=== PATIENT | female | born 2000 | race Caucasian/White ===

== ENCOUNTER 2022-09-18 06:15 | Day surgery (SDC) | payer OTHER ==
[~2022-09-18] VITALS: Ht 175.3 cm; Wt 138.8 kg
[2022-09-18 07:42] LABS: HCG,QUAL RESULT NEGATIVE (NEGATIVE)
[2022-09-18] MEDS ORDERED: fentaNYL CITRATE/PF 100 MCG/2 ML AMP ONE ×2 (07:48→08:47)
[2022-09-18] MEDS ORDERED: SEVOFLURANE 15 MIN GAS INH ONE (07:48)
[2022-09-18] MEDS ORDERED: SUCCINYLCHOLINE CHLORIDE 20 MG/ML(QUELICIN) ONE (07:48)
[2022-09-18] MEDS ORDERED: NS IRRIG SOLN 1000 ML IR ONE (07:48)
[2022-09-18] MEDS ORDERED: LR 1,000 ML IV.SOLN IV ONE (07:48)
[2022-09-18] MEDS ORDERED: LIDOCAINE/EPI 1% 1:100000 20 ML VIAL ONE (07:48)
[2022-09-18] MEDS ORDERED: ROCURONIUM BROMIDE 10 MG/ML (ZEMURON) ONE (07:48)
[2022-09-18] MEDS ORDERED: GLYCOPYRROLATE 0.2 MG/ML VIAL ONE (07:48)
[2022-09-18] MEDS ORDERED: PROPOFOL 200MG/ 20ML VIAL (DIPRIVAN) IV ONE (07:48)
[2022-09-18] MEDS ORDERED: MIDAZOLAM HCL 50 mg/10 mL INJ. VIAL ONE (07:48)
[2022-09-18] MEDS ORDERED: DEXAMETHASONE SOD PHOSPHATE 4 MG/ML VIAL ONE (07:48)
[2022-09-18] MEDS ORDERED: ONDANSETRON HCL 4 MG/2 ML VIAL ONE ×2 (07:48→08:47)
[2022-09-18] MEDS ORDERED: ONDANSETRON HCL 4 MG/2 ML VIAL IVP PRN ×2 (08:45→09:15)
[2022-09-18] MEDS ORDERED: ACETAMINOPHEN I.V. 1000 MG 100 ML IV ONE (08:45)
[2022-09-18] MEDS ORDERED: METOCLOPRAMIDE HCL 10 MG/2 ML VIAL IVP PRN (08:45)
[2022-09-18] MEDS ORDERED: HYDROmorphone 1 MG/ML INJ. CARTRIDGE IVP PRN (08:45)
[2022-09-18] MEDS ORDERED: KETOROLAC TROMETHAMINE 30 MG VIAL IVP PRN (08:45)
[2022-09-18] MEDS ORDERED: MIDAZOLAM HCL 5 MG/5 ML VIAL ONE (08:46)
[2022-09-18] MEDS ORDERED: DIPHENHYDRAMINE INJ 50 MG/ML VIAL ONE (08:47)
[2022-09-18] MEDS ORDERED: OXYCODONE/ACETAMINOPHEN 5-325 TABLET PO PRN ×2 (09:15)
[2022-09-18] MEDS ORDERED: HYDROcodone/ACETAMIN 5-325 MG TAB (NORCO/ VICODIN) PO PRN (09:15)
[2022-09-18] MEDS ORDERED: HYDROmorphone 1 MG/ML INJ. CARTRIDGE ONE (09:43)
[2022-09-18] MEDS ORDERED: OXYCODONE/ACETAMINOPHEN 5-325 TABLET ONE (13:05)
[2022-09-18] MEDS ORDERED: OXYC-128 PO (13:49)
[2022-09-18 16:21] VITALS: BP_SYST 117
== END 2022-09-18 14:00 | disposition home or self-care (01) ==
LOC: SDS 06:15 → SMU 06:15 → SDS 14:00
PROVIDERS: ATTEND Specialist
DX: E28.2 Polycystic ovarian syndrome (principal); N92.6 Irregular menstruation, unspecified; R10.2 Pelvic and perineal pain; E66.01 Morbid (severe) obesity due to excess calories; K21.9 Gastro-esophageal reflux disease without esophagitis; Z79.899 Other long term (current) drug therapy; Z68.42 Body mass index [BMI] 45.0-49.9, adult
CPT/HCPCS: 87081; 58662; 84703; 93005; 71045; J1100; J3490; J2405; J2704; J0330; J3010; J1170; J7120; C1727; J1200; J2250